=== PATIENT | male | born 1975 | race Caucasian/White ===

== ENCOUNTER 2017-09-30 06:13 | Day surgery (SDC) | payer OTHER ==
[2017-09-30] MEDS ORDERED: LIDOCAINE 2% (SDV) 5 ML INJ ×2 (07:00→08:23)
[2017-09-30] MEDS ORDERED: SOD CHLORIDE 0.9% 1,000 ML IV (07:00)
[2017-09-30] MEDS ORDERED: CEFAZOLIN 2 GM/50 ML (PMX) 50 ML IVPB (07:00)
[2017-09-30] MEDS ORDERED: NEOSTIGMINE 3 MG/3 ML SYRINGE ×2 (07:00→10:50)
[2017-09-30] MEDS ORDERED: GLYCOPYRROLATE 0.4 MG INJ ×2 (07:00→10:50)
[2017-09-30] MEDS ORDERED: CEFAZOLIN 1 GM INJ ×3 (07:00→10:50)
[2017-09-30] MEDS ORDERED: PROPOFOL 20 ML ×2 (08:22→09:21)
[2017-09-30] MEDS ORDERED: DEXAMETHASONE 4 MG/ML 1 ML INJ ×2 (08:23→09:49)
[2017-09-30] MEDS ORDERED: FENTAnyl 50 MCG/ML VIAL (08:23)
[2017-09-30] MEDS ORDERED: ONDANSETRON 4 MG INJ ×2 (08:23→09:50)
[2017-09-30] MEDS ORDERED: MIDAZOLAM 1 MG/ML 2 ML INJ (08:23)
[2017-09-30] MEDS ORDERED: FAMOTIDINE 20 MG INJ (08:25)
[2017-09-30] MEDS ORDERED: BUPIVACAINE 0.5%/EPI (SDV) 30 ML INJ (09:12)
[2017-09-30] MEDS ORDERED: POLYMYXIN/BACITRACIN 1L IRRIG (09:18)
[2017-09-30] MEDS ORDERED: ROCURONIUM 50 MG INJ (09:21)
[2017-09-30] MEDS ORDERED: HYDROmorphONE 1 MG/5 ML IV SYRINGE IV ×2 (09:30)
[2017-09-30] MEDS ORDERED: ALBUTEROL 0.083% (NEB) 2.5 MG/3 ML AMP HHN (09:30)
[2017-09-30] MEDS ORDERED: FENTAnyl 50 MCG/ML VIAL IV ×3 (09:30)
[2017-09-30] MEDS ORDERED: EPHEDrine SULFATE 50 MG/5 ML SYG IV (09:30)
[2017-09-30] MEDS ORDERED: LABETALOL HCL 20MG INJ IV (09:30)
[2017-09-30] MEDS ORDERED: METOCLOPRAMIDE 10 MG INJ IV (09:30)
[2017-09-30] MEDS ORDERED: MIDAZOLAM 1 MG/ML 2 ML INJ IV (09:30)
[2017-09-30] MEDS ORDERED: OXYCODONE/ACETAMINOPHEN (5/325) TAB PO ×4 (09:30→11:00)
[2017-09-30] MEDS ORDERED: hydrALAzine 20 MG INJ IV (09:30)
[2017-09-30] MEDS ORDERED: DIPHENHYDRAMINE 50 MG INJ IV (09:30)
[2017-09-30] MEDS ORDERED: MEPERIDINE 25 MG INJ IV (09:30)
[2017-09-30] MEDS: POLYMYXIN/BACITRACIN 1L IRRIG (09:58)
[2017-09-30] MEDS: BUPIVACAINE 0.25%/EPI (MDV) 50 ML VIAL INJ (09:58)
[2017-09-30] MEDS ORDERED: KETOROLAC 30 MG INJ IV (11:00)
[2017-09-30] MEDS ORDERED: IBUPROFEN 600 MG TAB PO (11:00)
[2017-09-30] MEDS ORDERED: morphine 2 MG INJ IV (11:00)
[2017-09-30] MEDS ORDERED: ONDANSETRON 4 MG INJ IV (11:00)
[2017-09-30] MEDS: ONDANSETRON 4 MG INJ IV (11:05)
[2017-09-30] MEDS: HYDROmorphONE 1 MG/5 ML IV SYRINGE IV ×2 (11:06→11:31)
[2017-09-30] MEDS: KETOROLAC 30 MG INJ IV (11:46)
== END 2017-09-30 12:58 | disposition home or self-care (01) ==
LOC: SDS 06:13
DX: K40.90 Unilateral inguinal hernia, without obstruction or gangrene, not specified as recurrent (principal)
CPT/HCPCS: 49505; 88302